=== PATIENT | male | born 1955 | race Caucasian/White ===

== ENCOUNTER 2019-09-23 09:34 | Observation (INO) | payer BC ==
[2019-09-23] MEDS ORDERED: SODIUM CHLORIDE 0.9% 1,000 ML IV STA (10:09)
--- NOTE | 2019-09-23 10:13 | ED ---
General Adult HPI - General Chief complaint: Nausea/Vomiting/Diarrhea Stated complaint: Flu symptoms Time Seen by Provider: 09/23/19 10:00 Source: patient Mode of arrival: ambulatory Limitations: no limitations - History of Present Illness Initial comments: Patient is a 63-year-old male, with history of hypertension, COPD, presenting to the emergency Department with complaints of generalized body aches as well as shortness of breath and diarrhea for the past 2 days. Patient was recently seen at ER last week and was diagnosed with sinus infection. She was started on Augmentin and is only taken 2 doses of it. Prior to that he was being treated with prednisone as well as doxycycline for similar symptoms. He did finish those courses and then was put on the Augmentin. Patient states he comes ER today because he feels very fatigued, generalized body aches, shortness of breath, cough, mild nausea as well as diarrhea for 2 days. He feels like his symptoms have gotten worse. He states he is very tired however is having difficulty sleeping. He has not had any other recent changes in medications except for the antibiotic. He denies any abdominal pain, chest pain. He denies any fevers or dysuria. He has no other complaints at this time. Upon arrival to the ER, patient was slightly tachycardia at 101, rest of vitals are normal. - Related Data Home Medications Medication Instructions Recorded Confirmed Amoxicillin/Potassium Clav 1 tab PO BID 09/23/19 09/23/19 [Augmentin 875-125 Tablet] Aspirin [[place]len Aspirin EC] 81 mg PO DAILY 09/23/19 09/23/19 Fluticasone/Umeclidin/Vilanter 1 puff INHALATION RT-DAILY 09/23/19 09/23/19 [Treleroman Ellipta 100-62.5-25] HYDROcodone/APAP 5-325MG [[place] 1 tab PO BID PRN 09/23/19 09/23/19 5-325] Lidocaine [Lidoderm 5% Patch] 1 patch TRANSDERM DAILY 09/23/19 09/23/19 Meloxicam [Mobic] 15 mg PO DAILY 09/23/19 09/23/19 Omeprazole 20 mg PO DAILY 09/23/19 09/23/19 Tiotropium 18 Mcg/Puff [Spiriva] 1 puff INHALATION RT-DAILY 03/06/20 03/06/20 Triamcinolone Acetonide 2 spray EA NOSTRIL DAILY 09/23/19 09/23/19 [Triamcinolone Acetonide 0.055MG Nasal] Zafirlukast [Accolate] 20 mg PO BID 09/23/19 09/23/19 Allergies Allergy/AdvReac Type Severity Reaction Status Date / Time No Known Allergies Allergy Verified 09/23/19 13:07 Review of Systems ROS Statement: Those systems with pertinent positive or pertinent negative responses have been documented in the HPI. ROS Other: All systems not noted in ROS Statement are negative. Past Medical History Past Medical History: COPD, Deep Vein Thrombosis (DVT), GERD/Reflux, Osteoarthritis (OA) History of Any Multi-Drug Resistant Organisms: None Reported Past Surgical History: Orthopedic Surgery, Tonsillectomy Past Psychological History: No Psychological Hx Reported Smoking Status: Former smoker Past Alcohol Use History: Occasional Past Drug Use History: None Reported - Past Family History Father Family Medical History: Cancer Additional Family Medical History / Comment(s): Leukemia Mother Family Medical History: COPD, Rheumatoid Arthritis (RA) General Exam - General Exam Comments Initial Comments: GENERAL: Patient appears fatigued, in no acute distress. HEAD: Atraumatic, normocephalic. EYES: Pupils equal round and reactive to light, extraocular movements intact, sclera anicteric, conjunctiva are normal. ENT: TMs normal, nares patent, oropharynx clear without exudates. Moist mucous membranes. NECK: Normal range of motion, supple without lymphadenopathy or JVD. LUNGS: Breath sounds clear to auscultation bilaterally and equal. No wheezes rales or rhonchi. HEART: Tachycardia rate and rhythm without murmurs, rubs or gallops. ABDOMEN: Soft, nontender, normoactive bowel sounds. No guarding, no rebound. No masses appreciated. : Deferred EXTREMITIES: Normal range of motion, no pitting or edema. No clubbing or cyanosis. NEUROLOGICAL: Cranial nerves II through XII grossly intact. Normal speech, normal gait. PSYCH: Normal mood, normal affect. SKIN: Warm, Dry, normal turgor, no rashes or lesions noted. Limitations: no limitations Course Vital Signs 09/23/19 09/23/19 09/23/19 09:38 13:44 13:50 Temperature 98.1 F Pulse Rate 101 H 100 104 H Respiratory 18 Rate Blood Pressure 144/83 O2 Sat by Pulse 100 Oximetry 09/23/19 14:11 Temperature 99.0 F Pulse Rate 98 Respiratory 18 Rate Blood Pressure 149/87 O2 Sat by Pulse 97 Oximetry EKG Findings - EKG Comments: EKG Findings:: Ventricular rate 96, P interval 156, QTC 439. Normal sinus rhythm. No acute ST segment changes. Possible left atrial [place]. Medical Decision Making - Medical Decision Making Patient is a 63-year-old male presenting with generalized body aches, fatigue, shortness of breath, cough for 2 days. He is currently on Augmentin for sinus infection. Patient is tachycardia on arrival. Labs are unremarkable, including negative d-dimer. Lactic acid is 1.5. Urine does show signs of dehydration, no infection. Influenza is negative. Chest x-ray shows no acute process. There is a round density at the left lung base measuring partly 5 mm. They henri mmended outpatient follow-up. Patient was given fluids. He only repeats a very minor improvement of symptoms. I discussed case with Dr. Hurley. Patient will be admitted for COPD exacerbation as well as dehydration. He will be given steroids, breathing treatments and continued on fluids. Dr. Roberts accepted the patient. Patient is in agreement with this plan of care. - Lab Data Result diagrams: 09/23/19 10:55 09/23/19 10:55 Lab Results 09/23/19 09/23/19 09/23/19 Range/Units 10:55 10:55 10:55 WBC 7.7 (3.8-10.6) k/uL RBC 5.15 (4.30-5.90) m/uL Hgb 16.1 (13.0-17.5) gm/dL Hct 48.3 (39.0-53.0) % MCV 93.6 (80.0-100.0) fL MCH 31.3 (25.0-35.0) pg MCHC 33.5 (31.0-37.0) g/dL RDW 12.4 (11.5-15.5) % Plt Count 208 (150-450) k/uL Neutrophils % 80 % Lymphocytes % 11 % Monocytes % 6 % Eosinophils % 1 % Basophils % 0 % Neutrophils # 6.2 (1.3-7.7) k/uL Lymphocytes # 0.9 L (1.0-4.8) k/uL Monocytes # 0.4 (0-1.0) k/uL Eosinophils # 0.1 (0-0.7) k/uL Basophils # 0.0 (0-0.2) k/uL D-Dimer (<0.60) mg/L FEU Sodium 138 (137-145) mmol/L Potassium 4.0 (3.5-5.1) mmol/L Chloride 106 (98-107) mmol/L Carbon Dioxide 22 (22-30) mmol/L Anion Gap 10 mmol/L BUN 12 (9-20) mg/dL Creatinine 1.10 (0.66-1.25) mg/dL Est GFR (CKD-EPI)AfAm 82 (>60 ml/min/1.73 sqM) Est GFR (CKD-EPI)NonAf 71 (>60 ml/min/1.73 sqM) Glucose 99 (74-99) mg/dL Plasma Lactic Acid [place] (0.7-2.0) mmol/L Calcium 8.8 (8.4-10.2) mg/dL Total Bilirubin 0.9 (0.2-1.3) mg/dL AST 21 (17-59) U/L ALT 27 (4-49) U/L Alkaline Phosphatase 67 (38-126) U/L Total Protein 6.5 (6.3-8.2) g/dL Albumin 4.1 (3.5-5.0) g/dL Urine Color Yellow Urine Appearance Clear (Clear) Urine pH 6.0 (5.0-8.0) Ur Specific [place] 1.022 (1.001-1.035) Urine Protein 1+ H (Negative) Urine Glucose (UA) Negative (Negative) Urine Ketones 2+ H (Negative) Urine Blood Negative (Negative) Urine Nitrite Negative (Negative) Urine Bilirubin Negative (Negative) Urine Urobilinogen <2.0 (<2.0) mg/dL Ur Leukocyte Esterase Negative (Negative) Urine RBC 1 (0-5) /hpf Urine WBC 2 (0-5) /hpf Ur Squamous Epith Cells <1 (0-4) /hpf Urine Mucus Few H (None) /hpf Influenza Type A RNA (Not Detectd) Influenza Type B (PCR) (Not Detectd) 03/06/20 03/06/20 03/06/20 Range/Units 10:55 10:55 10:55 WBC (3.8-10.6) k/uL RBC (4.30-5.90) m/uL Hgb (13.0-17.5) gm/dL Hct (39.0-53.0) % MCV (80.0-100.0) fL MCH (25.0-35.0) pg MCHC (31.0-37.0) g/dL RDW (11.5-15.5) % Plt Count (150-450) k/uL Neutrophils % % Lymphocytes % % Monocytes % % Eosinophils % % Basophils % % Neutrophils # (1.3-7.7) k/uL Lymphocytes # (1.0-4.8) k/uL Monocytes # (0-1.0) k/uL Eosinophils # (0-0.7) k/uL Basophils # (0-0.2) k/uL D-Dimer 0.43 (<0.60) mg/L FEU Sodium (137-145) mmol/L Potassium (3.5-5.1) mmol/L Chloride (98-107) mmol/L Carbon Dioxide (22-30) mmol/L Anion Gap mmol/L BUN (9-20) mg/dL Creatinine (0.66-1.25) mg/dL Est GFR (CKD-EPI)AfAm (>60 ml/min/1.73 sqM) Est GFR (CKD-EPI)NonAf (>60 ml/min/1.73 sqM) Glucose (74-99) mg/dL Plasma Lactic Acid Prince 1.5 (0.7-2.0) mmol/L Calcium (8.4-10.2) mg/dL Total Bilirubin (0.2-1.3) mg/dL AST (17-59) U/L ALT (4-49) U/L Alkaline Phosphatase (38-126) U/L Total Protein (6.3-8.2) g/dL Albumin (3.5-5.0) g/dL Urine Color Urine Appearance (Clear) Urine pH (5.0-8.0) Ur Specific [place] (1.001-1.035) Urine Protein (Negative) Urine Glucose (UA) (Negative) Urine Ketones (Negative) Urine Blood (Negative) Urine Nitrite (Negative) Urine Bilirubin (Negative) Urine Urobilinogen (<2.0) mg/dL Ur Leukocyte Esterase (Negative) Urine RBC (0-5) /hpf Urine WBC (0-5) /hpf Ur Squamous Epith Cells (0-4) /hpf Urine Mucus (None) /hpf Influenza Type A RNA Not Detected (Not Detectd) Influenza Type B (PCR) Not Detected (Not Detectd) Disposition Clinical Impression: Dehydration, COPD exacerbation Disposition: ADMITTED IP TO THIS HOSP Condition: Stable Is patient prescribed a controlled substance at d/c from ED?: No Decision Date: 09/23/19 Decision Time: 13:22
[2019-09-23 11:22] LABS: Basophils % (A) 0 %; Eosinophils # (A) 0.1 k/uL (0-0.7); Eosinophils % (A) 1 %; HCT 48.3 % (39.0-53.0); HGB 16.1 gm/dL (13.0-17.5); Lymphocytes # (A) 0.9 k/uL (1.0-4.8); Lymphocytes % (A) 11 %; MCH 31.3 pg (25.0-35.0); MCHC 33.5 g/dL (31.0-37.0); MCV 93.6 fL (80.0-100.0); Mean Platelet Volume 8.3; Monocytes # (A) 0.4 k/uL (0-1.0); Monocytes % (A) 6 %; Neutrophils # (A) 6.2 k/uL (1.3-7.7); Neutrophils % (A) 80 %; Platelet Count 208 k/uL (150-450); RBC 5.15 m/uL (4.30-5.90); RDW 12.4 % (11.5-15.5); WBC 7.7 k/uL (3.8-10.6)
[2019-09-23 11:25] LABS: Appearance,Urine Clear (Clear); Bilirubin,Urine Negative (Negative); Blood,Urine Negative (Negative); Color,Urine Yellow; Glucose,Urine (UA) Negative (Negative); Ketones,Urine 2+ (Negative); Leukocyte Esterase,Urine Negative (Negative); Mucus,Urine Few /hpf; Nitrite,Urine Negative (Negative); Protein,Urine 1+ (Negative); RBC,Urine 1 /hpf (0-5); Specific Gravity,Urine 1.022 (1.001-1.035); Squamous Epithelial Cell,Urine <1 /hpf (0-4); Urobilinogen,Urine <2.0 mg/dL (<2.0); WBC,Urine 2 /hpf (0-5)
--- NOTE | 2019-09-23 11:32 | XR ---
EXAMINATION TYPE: XR chest 2V DATE OF EXAM: 09/23/2019 COMPARISON: NONE HISTORY: Cough and congestion TECHNIQUE: Frontal and lateral views of the chest are obtained. FINDINGS: There is no focal air space opacity, pleural effusion, or pneumothorax seen. Nodular dens ity measuring 5 mm at the left lung base. The cardiac silhouette size is within normal limits. The osseous structures are intact. IMPRESSION: No acute cardiopulmonary process. Nodular rounded density at the left lung base could re late to a pulmonary vessel en face or true pulmonary nodule. This could be assessed with follow-up no nemergent chest CT.
[2019-09-23 12:05] LABS: Albumin 4.1 g/dL (3.5-5.0); Calcium 8.8 mg/dL (8.4-10.2); Total Bilirubin 0.9 mg/dL (0.2-1.3); Total Protein 6.5 g/dL (6.3-8.2)
[2019-09-23] MEDS ORDERED: IPRATROPIUM-ALBUTEROL 3 ML NEB INHALATION STA (13:20)
[2019-09-23] MEDS ORDERED: methylPREDNISolone SOD SUCCI 125 MG/2 ML VIAL IV STA (13:20)
[2019-09-23] MEDS: SODIUM CHLORIDE 0.9% 1,000 ML IV SCH (14:13)
[2019-09-23] MEDS ORDERED: HYDROcodone/APAP 5-325MG 1 EACH TAB PO PRN (15:49)
[2019-09-23] MEDS ORDERED: IPRATROPIUM 0.5 MG/2.5 ML NEBU INHALATION SCH (16:00)
[2019-09-23] MEDS: MELOXICAM 7.5 MG TAB PO SCH (16:32)
[2019-09-23] MEDS: ASPIRIN 81 MG PO SCH (16:33)
[2019-09-23] MEDS: LIDOCAINE 5% PATCH TOPICAL SCH (16:33)
[2019-09-23] MEDS ORDERED: MD COMMUNICATION TO PHARMACY 1 EACH MISC PO PRN (16:42)
[2019-09-23] MEDS: FLUTICASONE 50MCG/SPRAY NASAL 16GM EA NOSTRIL SCH (19:23)
[2019-09-23] MEDS: TIOTROPIUM INHALATION SCH (19:39)
[2019-09-23] MEDS: AMOXIC-POT CLAV 875-125MG 1 EACH TAB PO SCH (19:40)
[2019-09-23] MEDS ORDERED: MONTELUKAST 10 MG TAB PO SCH (21:00)
[2019-09-23] MEDS: SYMBICORT 80-4.5 MCG INHALER INHALATION SCH (21:17)
[2019-09-24] MEDS: SODIUM CHLORIDE 0.9% 1,000 ML IV SCH (01:56)
[2019-09-24 07:16] VITALS: BP 153/77; PULSE 77; RESP 18; TEMP 98.1
[2019-09-24] MEDS ORDERED: PANTOPRAZOLE 40 MG TABLET PO SCH (07:30)
[2019-09-24] MEDS ORDERED: NON FORMULARY DRUG (Tiotropium 18 Mcg/Puff 1 PUFF) INHALATION SCH (08:00)
[2019-09-24] MEDS: SYMBICORT 80-4.5 MCG INHALER INHALATION SCH (08:27)
[2019-09-24] MEDS: TIOTROPIUM INHALATION SCH (08:27)
[2019-09-24] MEDS: LIDOCAINE 5% PATCH TOPICAL SCH (09:25)
[2019-09-24] MEDS: AMOXIC-POT CLAV 875-125MG 1 EACH TAB PO SCH (09:25)
[2019-09-24] MEDS: MELOXICAM 7.5 MG TAB PO SCH (09:26)
[2019-09-24] MEDS: ASPIRIN 81 MG PO SCH (09:26)
[2019-09-24] MEDS: FLUTICASONE 50MCG/SPRAY NASAL 16GM EA NOSTRIL SCH (09:26)
[2019-09-24 13:50] VITALS: BMI 28.0
--- NOTE | 2019-09-24 14:44 | P.HPIM ---
History of Present Illness H&P Date: 09/24/19 Chief Complaint: Weak tired History of presenting complaint: This is a very pleasant 63-year-old patient of Dr. Park. Chronic stable medical conditions include COPD, osteoarthritis, possibly GERD. Patient for about a month ago was treated for having sinus infections. Was given a course of antibiotic and steroids. He did finish the course and then he started of with symptoms again is ago was again given some steroids. Periods and some antibiotics. About 4 days ago he finished his course of steroids and at some antibiotics left. Patient did go down to the [facility] as patient is having multiple symptoms. Had no fever no chills. He had some diarrhea. Dizzy lightheaded some nausea just tired rundown. Has some loose stools yesterday after starting Augmentin. Overnight patient give IV fluids and felt much better. In fact he able to have his breakfast this morning. Overall feeling much better. Patient's and daughter the bedside. Review of systems: GEN.: Tired EYES: None HEENT: Nasal stuffiness NECK: None RESPIRATORY: Had some shortness of breath all resolved CARDIOVASCULAR: None GASTROINTESTINAL: Diarrhea improved today GENITOURINARY: None MUSCULOSKELETAL: Joint pains LYMPHATICS: None HEMATOLOGICAL: None PSYCHIATRY: None NEUROLOGICAL: None Past medical history to include: COPD, DVT many years ago, GERD, osteoarthritis bilateral tinnitus Social history: , smoked a pack daily for about 20 years stopped in 1999. Alcohol occasionally. 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 Physical examination: VITAL SIGNS: 98.1, 101, 18, 144/83, 90% room air GENERAL: BMI 28.1, laying bed awake. EYES: Pupils equal. Conjunctiva normal. HEENT: External appearance of nose and ears normal, oral cavity grossly normal. NECK: JVD not raised; masses not palpable. HEART: First and second heart sounds are normal; no edema. LUNGS: Respiratory rate normal; clear to auscultation. ABDOMEN: Soft, nontender, liver spleen not palpable, no masses palpable. PSYCH: Alert and oriented x3; mood and affect normal. NEUROLOGICAL: Cranial nerves grossly intact; no facial asymmetry, power and sensation grossly intact. LYMPHATICS: No lymph nodes palpable in the axilla and neck INVESTIGATIONS, reviewed in the clinical context: White count 7.7 hemoglobin 16.1 platelets 208 potassium 4 creatinine 1.10 UA positive for 1+ protein 2+ ketones Influenza type A and type B both negative stool for C. diff negative Assessment: -Clinical dehydration for not eating well last few days and also having diarrhea causing nausea and dizziness lightheadedness tired rundown. Patient has responded well to IV fluids. -COPD in an ex-smoker -Ketonuria from dehydration -Antibiotic associated diarrhea. C. diff was negative -GERD -Primary osteoarthritis Plan: Patient is given IV fluids. Did tolerate his breakfast. Overall feeling much better no dizziness or lightheadedness. Patient has been up to the bathroom. No diarrhea since this morning. No fever or white count. No need for any antibiotics at the current time. Plan the patient up and down the hallway and see how doesn't possible discharge later today. Past Medical History Past Medical History: COPD, Deep Vein Thrombosis (DVT), GERD/Reflux, Osteoarthritis (OA) Additional Past Medical History / Comment(s): Pt states he has been ill from a sinus infection for about one month, DVT R arm, generalized arthritis, chronic low back/bilateral hip and knee pain, bilateral tinnitis, high cholesterol but not on rx yet, murmur as a child, croup as a child History of Any Multi-Drug Resistant Organisms: None Reported Past Surgical History: Orthopedic Surgery, Tonsillectomy Additional Past Surgical History / Comment(s): R clavicle surgery, colonoscopy with 2 benign polyps Past Anesthesia/Blood Transfusion Reactions: No Reported Reaction, Motion Sickness Additional Past Anesthesia/Blood Transfusion Reaction / Comment(s): Clausterphobia Past Psychological History: No Psychological Hx Reported Smoking Status: Former smoker Past Alcohol Use History: Occasional Past Drug Use History: None Reported - Past Family History Father Family Medical History: Cancer Additional Family Medical History / Comment(s): Leukemia Mother Family Medical History: COPD, Rheumatoid Arthritis (RA) Medications and Allergies Home Medications Medication Instructions Recorded Confirmed Type Amoxicillin/Potassium Clav 1 tab PO BID 09/23/19 09/23/19 History [Augmentin 875-125 Tablet] Aspirin [[place] Aspirin EC] 81 mg PO DAILY 09/23/19 09/23/19 History Fluticasone/Umeclidin/Vilanter 1 puff INHALATION RT-DAILY 09/23/19 09/23/19 History [Trelegy Ellipta 100-62.5-25] HYDROcodone/APAP 5-325MG [[place] 1 tab PO BID PRN 09/23/19 09/23/19 History 5-325] Lidocaine [Lidoderm 5% Patch] 1 patch TRANSDERM DAILY 09/23/19 09/23/19 History Meloxicam [Mobic] 15 mg PO DAILY 09/23/19 09/23/19 History Omeprazole 20 mg PO DAILY 09/23/19 09/23/19 History Tiotropium 18 Mcg/Puff [Spiriva] 1 puff INHALATION RT-DAILY 09/23/19 09/23/19 History Triamcinolone Acetonide 2 spray EA NOSTRIL DAILY 09/23/19 09/23/19 History [Triamcinolone Acetonide 0.055MG Nasal] Zafirlukast [Accolate] 20 mg PO BID 09/23/19 09/23/19 History Allergies Allergy/AdvReac Type Severity Reaction Status Date / Time No Known Allergies Allergy Verified 09/23/19 13:07 Physical Exam Vitals: Vital Signs Temp Pulse Pulse Resp BP BP BP 09/24/19 07:00 98.1 F 77 18 153/77 09/24/19 04:00 98.0 F 80 16 136/76 09/23/19 19:33 98.3 F 82 149/75 09/23/19 14:56 98.9 F 88 18 146/83 09/23/19 14:11 99.0 F 98 18 149/87 09/23/19 13:50 104 H 09/23/19 13:44 100 Pulse Ox 09/24/19 07:00 96 09/24/19 04:00 98 09/23/19 19:33 96 09/23/19 14:56 98 09/23/19 14:11 97 09/23/19 13:50 09/23/19 13:44 Intake and Output 09/23/19 09/24/19 09/24/19 22:59 06:59 14:59 Intake Total 300 636 Balance 300 636 Intake: Intake, IV Titration 300 Amount Sodium Chloride 0.9% 1, 300 000 ml @ 75 mls/hr IV . [id number] IGLESIA Rx#:[id number] Oral 236 Other 400 Other: # Voids 1 Weight 99.337 kg Results CBC & Chem 7: 09/23/19 10:55 09/23/19 10:55 Labs: Abnormal Lab Results - Last 24 Hours (Table) 09/23/19 09/23/19 Range/Units 10:55 10:55 Lymphocytes # 0.9 L (1.0-4.8) k/uL Urine Protein 1+ H (Negative) Urine Ketones 2+ H (Negative) Urine Mucus Few H (None) /hpf Thrombosis Risk Factor Assmnt - Choose All That Apply Any of the Below Risk Factors Present?: Yes Each Factor Represents 1 point: Abnormal pulmonary function (COPD), Obesity (BMI >25) Other Risk Factors: Yes Each Risk Factor Represents 2 Points: Age 61-74 years Each Risk Factor Represents 3 Points: History of DVT/PE Other congenital or acquired thrombophilia - If yes, enter type in comment: No Thrombosis Risk Factor Assessment Total Risk Factor Score: 7 Thrombosis Risk Factor Assessment Level: High Risk
--- NOTE | 2019-09-24 21:03 | P.DS ---
Providers Date of admission: 09/23/19 13:03 Expected date of discharge: 09/24/19 Attending physician: Ammon Roberts Primary care physician: [facility] Course: Chief Complaint: Weak tired History of presenting complaint: This is a very pleasant 63-year-old patient of Dr. Park. Chronic stable medical conditions include COPD, osteoarthritis, possibly GERD. Patient for about a month ago was treated for having sinus infections. Was given a course of antibiotic and steroids. He did finish the course and then he started of with symptoms again is ago was again given some steroids. Periods and some antibiotics. About 4 days ago he finished his course of steroids and at some antibiotics left. Patient did go down to the [facility] as patient is having multiple symptoms. Had no fever no chills. He had some diarrhea. Dizzy lightheaded some nausea just tired rundown. Has some loose stools yesterday after starting Augmentin. Overnight patient give IV fluids and felt much better. In fact he able to have his breakfast this morning. Overall feeling much better. Patient's and daughter the bedside. Admitted with-dehydration, antibiotic associated diarrhea He did really well with IV fluids. No further diarrhea. Up and about in the hallway. No need for further antibiotics. Antihistaminic added. He was discussed with the patient and family the bedside. Physical examination: VITAL SIGNS: 98.1, 77, 18, 150-77, 96% on room air GENERAL: Propped up, comfortable EYES: Pupils equal. Conjunctiva normal. HEENT: External appearance of nose and ears normal, oral cavity grossly normal. NECK: JVD not raised; masses not palpable. HEART: First and second heart sounds are normal; no edema. LUNGS: Respiratory rate normal; clear to auscultation. ABDOMEN: Soft, nontender, liver spleen not palpable, no masses palpable. PSYCH: Alert and oriented x3; mood and affect normal. INVESTIGATIONS, reviewed in the clinical context: White count 7.7 hemoglobin 16.1 platelets 208 potassium 4 creatinine 1.10 UA positive for 1+ protein 2+ ketones Influenza type A and type B both negative stool for C. diff negative Assessment: -Clinical dehydration for not eating well last few days and also having diarrhea causing nausea and dizziness lightheadedness tired rundown. Patient has responded well to IV fluids., POA -COPD in an ex-smoker -Ketonuria from dehydration -Antibiotic associated diarrhea. C. diff was negative, POA -GERD -Primary osteoarthritis Disposition: Home Patient Condition at Discharge: Stable Plan - Discharge Summary Discharge Rx Participant: No New Discharge Prescriptions: New Loratadine [Claritin] 5 mg PO BID #10 tab Continue Zafirlukast [Accolate] 20 mg PO BID Triamcinolone Acetonide [Triamcinolone Acetonide 0.055MG Nasal] 2 spray EA NOSTRIL DAILY Tiotropium 18 Mcg/Puff [Spiriva] 1 puff INHALATION RT-DAILY Omeprazole 20 mg PO DAILY Meloxicam [Mobic] 15 mg PO DAILY Lidocaine [Lidoderm 5% Patch] 1 patch TRANSDERM DAILY HYDROcodone/APAP 5-325MG [[place] 5-325] 1 tab PO BID PRN PRN Reason: Pain Fluticasone/Umeclidin/Vilanter [Trelegy Ellipta 100-62.5-25] 1 puff INHALATION RT-DAILY Aspirin [[place] Aspirin EC] 81 mg PO DAILY Discontinued Amoxicillin/Potassium Clav [Augmentin 875-125 Tablet] 1 tab PO BID Discharge Medication List Aspirin [[place] Aspirin EC] 81 mg PO DAILY 09/23/19 [History] Fluticasone/Umeclidin/Vilanter [Trelegy Ellipta 100-62.5-25] 1 puff INHALATION RT-DAILY 09/23/19 [History] HYDROcodone/APAP 5-325MG [[place] 5-325] 1 tab PO BID PRN 09/23/19 [History] Lidocaine [Lidoderm 5% Patch] 1 patch TRANSDERM DAILY 09/23/19 [History] Meloxicam [Mobic] 15 mg PO DAILY 09/23/19 [History] Omeprazole 20 mg PO DAILY 09/23/19 [History] Tiotropium 18 Mcg/Puff [Spiriva] 1 puff INHALATION RT-DAILY 09/23/19 [History] Triamcinolone Acetonide [Triamcinolone Acetonide 0.055MG Nasal] 2 spray EA NOSTRIL DAILY 09/23/19 [History] Zafirlukast [Accolate] 20 mg PO BID 09/23/19 [History] Loratadine [Claritin] 5 mg PO BID #10 tab 09/24/19 [Rx] Follow up Appointment(s)/Referral(s): Sachin An DO [Primary Care Provider] - 1-2 days David Flores MD [STAFF PHYSICIAN] - 2 Weeks (Follow-up lung nodule) Patient Instructions/Handouts: Dehydration (DC), COPD (Chronic Obstructive Pulmonary Disease) (DC) Discharge Disposition: HOME SELF-CARE
== END 2019-09-24 15:20 | disposition home or self-care (01) ==
LOC: EC 09:34 → 1SOBS 13:03
PROVIDERS: ADMIT Hospitalist; ATTEND Hospitalist
DX: E86.0 Dehydration (principal); K52.1 Toxic gastroenteritis and colitis; T36.95XA Adverse effect of unspecified systemic antibiotic, initial encounter; R11.0 Nausea; J44.9 Chronic obstructive pulmonary disease, unspecified; I10 Essential (primary) hypertension; Z86.718 Personal history of other venous thrombosis and embolism; K21.9 Gastro-esophageal reflux disease without esophagitis; M19.91 Primary osteoarthritis, unspecified site; R91.1 Solitary pulmonary nodule; H93.13 Tinnitus, bilateral; Z87.891 Personal history of nicotine dependence; G89.29 Other chronic pain; M54.5 Low back pain; M25.552 Pain in left hip; M25.551 Pain in right hip; M25.562 Pain in left knee; M25.561 Pain in right knee; E78.00 Pure hypercholesterolemia, unspecified; E66.9 Obesity, unspecified; Z79.82 Long term (current) use of aspirin; Z79.899 Other long term (current) drug therapy; Z90.89 Acquired absence of other organs; Z80.6 Family history of leukemia; Z82.5 Family history of asthma and other chronic lower respiratory diseases; Z82.61 Family history of arthritis; Z68.28 Body mass index [BMI] 28.0-28.9, adult
CPT/HCPCS: 96361; 96374; 99285; 36415; 94640 ×2; 93005; 85379; 80053; 83605; 85025; 81001; 87324; 87502; 71046; G0378 ×2; J2930

== ENCOUNTER → 2021-03-11 | Outpatient (CLI) | payer MEDICARE, BC ==
--- NOTE | 2021-03-12 02:00 | MR ---
EXAMINATION TYPE: MR shoulder RT wo con DATE OF EXAM: 03/11/2021 COMPARISON: None HISTORY: Right shoulder pain, decreased ROM. Multiplanar multiecho imaging of the right shoulder without contrast. There is some fluid around the biceps tendon. There is small shoulder joint effusion. Subscapularis t endon is intact. The glenoid azalea appear intact. There is some thickening and increased signal in th e supraspinatus tendon at the greater tuberosity of the humerus. There is no retraction. There is no subacromial impingement. There is no evidence of a fracture. Glenohumeral joint is anatomic. Scapula appears intact. There is hypertrophic spurring at the AC joint. IMPRESSION: Mild shoulder joint effusion. Significant thickening of the supraspinatus tendon with increased signa l consistent with tendinitis. No definite full-thickness tear. No fracture.
== END | disposition home or self-care (01) ==
LOC: RADMRIMAIN 21:32
PROVIDERS: ATTEND Orthopaedic Surgery
DX: M25.411 Effusion, right shoulder (principal); M67.813 Other specified disorders of tendon, right shoulder